=== PATIENT | female | born 1985 | race Caucasian/White ===

== ENCOUNTER 2016-12-31 19:01 | Observation (INO) ==
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
[2016-12-31] MEDS ORDERED: Tdap (Boostrix) Vaccine 0.5 ML SYRINGE IM ONE (20:24)
[2016-12-31 20:59] LABS: Alanine Aminotransferase 20 Units/L (0-55); Albumin 3.4 g/dL (3.5-5.0); Albumin/Globulin Ratio 0.9 (1.1-2.2); Alkaline Phosphatase 98 Units/L (38-126); Aspartate Amino Transferase 24 Units/L (5-34); BUN/Creatinine Ratio 16 (6-26); Bilirubin,Direct 0.2 mg/dL (0.0-0.5); Bilirubin,Indirect 0.1 mg/dL (0.0-1.2); Bilirubin,Total 0.3 mg/dL (0.2-1.2); Blood Urea Nitrogen 11 mg/dL (7-20); Calcium 8.7 mg/dL (8.6-10.8); Carbon Dioxide 24 mEq/L (19-29); Chloride 108 mEq/L (98-109); Globulin 3.7 g/dL (2.4-3.5); Glucose 95 mg/dL (70-99); Osmolality,Calculated 289 (280-300); Potassium 3.5 mEq/L (3.5-4.5); Sodium 140 mEq/L (136-145); Total Protein 7.1 g/dL (6.0-8.3); eGFR For African Americans > 60 (> 60); eGFR For Non-African Americans > 60 (> 60)
[2016-12-31 21:00] LABS: Acetaminophen < 1.0 mcg/mL (10-30); Salicylate < 5.0 mg/dL (15-30)
[2016-12-31 21:13] LABS: Bilirubin,Urine Small (Negative); Blood,Urine Large (Negative); Color,Urine Yellow (Yellow); Glucose,Urine (UA) Normal (Normal); Ketones,Urine Negative (Negative); Leukocyte Esterase,Urine Negative (Negative); Nitrite,Urine Positive (Negative); Protein,Urine Trace mg/dL (Neg-Trace); Specific Gravity,Urine > 1.030 (1.010-1.025); Urobilinogen,Urine Normal (Normal)
[2016-12-31 21:15] LABS: Bacteria,Urine Many per hpf (None-Few); Hyaline Casts,Urine Few per lpf (None-Few); RBC,Urine 50-100 per hpf (0-3); Squamous Epithelial Cell,Urine Many per lpf (None-Few)
[2016-12-31 21:16] LABS: Clarity,Urine Hazy (Clear)
[2016-12-31 21:17] LABS: Basophils # 0.1 K/mcL (0.0-0.2); Basophils % 0.7 %; Eosinophils # 0.1 K/mcL (0.0-0.6); Eosinophils % 0.7 %; Hematocrit 41.3 % (35.3-44.9); Immature Granulocytes % 0.3 % (0-4); Immature Platelets 7.5 % (1.1-6.1); Lymphocytes # 2.8 K/mcL (0.6-4.6); Lymphocytes % 38.6 %; Mean Corpuscular HGB Conc 32.2 g/dL (31.6-35.5); Mean Corpuscular Hemoglobin 26.2 pg (28.0-33.3); Mean Platelet Volume 10.7 fL (9.4-12.4); Monocytes # 0.5 K/mcL (0.0-1.3); Monocytes % 6.2 %; Neutrophils # 3.9 K/mcL (1.6-8.9); Platelet Count 188 K/mcL (140-400); Red Blood Count 5.08 M/mcL (3.82-4.97); Red Cell Distribution Width 14.2 % (11.5-14.5); Segmented Neutrophils % 53.5 %
[2016-12-31 21:18] LABS: Hemoglobin 13.3 g/dL (11.5-15.4); Mean Corpuscular Volume 81.3 fL (83.0-100.0)
[2016-12-31 21:20] LABS: Triiodothyronine (T3) Free 3.66 pg/mL (1.71-3.71)
[2016-12-31 21:29] LABS: Amphetamine Screen,Urine Positive ng/mL (Cutoff=1000); Barbiturate Screen,Urine Negative ng/mL (Cutoff=200); Benzodiazepines Screen,Urine Negative ng/mL (Cutoff=200); Cannabinoid Screen,Urine Positive ng/mL (Cutoff = 50); Cocaine Screen,Urine Negative ng/mL (Cutoff= 300); Opiate Screen,Urine Negative ng/mL (Cutoff=300); Phencyclidine Screen,Urine Negative ng/mL (Cutoff=25)
[2016-12-31] MEDS ORDERED: 0.9 % Sodium Chloride 1,000 ML IVC ONE (23:12)
[2016-12-31] MEDS ORDERED: *HR* LORazepam 2 MG/ML VIAL IVP ONE (23:20)
[2016-12-31] MEDS ORDERED: *HR* LORazepam 1 MG TABLET PO ONE (23:59)
[2017-01-01 00:23] LABS: INR 1.2; Prothrombin Time 12.7 Seconds (9.4-12.1)
[2017-01-01] MEDS ORDERED: Ketorolac 30 MG/ML VIAL IVP PRN (01:40)
[2017-01-01] MEDS ORDERED: Acetaminophen 325 MG TABLET PO PRN (01:40)
[2017-01-01] MEDS ORDERED: Pantoprazole 40 MG VIAL IVP STA (01:40)
[2017-01-01] MEDS ORDERED: Naloxone 0.4 MG/ML INJ IVP PRN (01:40)
[2017-01-01] MEDS ORDERED: *HR* Promethazine 25 MG/ML VIAL IVP PRN (01:40)
--- NOTE | 2017-01-01 01:52 | Internal Med History&Physical ---
Date of Encounter: 01/01/17 Time of Encounter: 01:30 Assessment and Plan (1) Acute narcotic intoxication with delirium Status: Acute . (2) Toxic metabolic encephalopathy Status: Acute . (3) Polysubstance overdose Status: Acute . Qualifiers: Encounter type: initial encounter Injury intent: undetermined intent Qualified Code(s): T50.904A - Poisoning by unspecified drugs, medicaments and biological substances, undetermined, initial encounter (4) Graves disease Status: Chronic . Internal Medicine - H&P: HPI Chief complaint: Confusion Admitted From: Emergency Dept Plans for Post Hospital Care: Home History of present illness: Ms. Schafer is a 31 year old female with significant history reported for Graves ' disease (not currently on thyroid suppressive medication), PTSD/Gen anxiety, H/O polysubst abuse/opiates, nonsmoker, etc.. Admitted to [facility] via the emergency department when she presents accompanied by a friend with concern over possible involuntary drug intoxication. Findings in the ED: Temperature 98.1 pulse 98-100 respiration 16-18 BP 114-130/70-81. O2 saturation is 100% room air. WBC 7.3. Hemoglobin 13.3. Platelets 188,000. Differential normal. Comprehensive metabolic panel is normal. BUN 11 creatinine 0.7. Hepatic function normal. Serum negative. Salicylates less than 5 acetaminophen less than 1. C-reactive protein 3. TSH 0.000. Free-T4 1.52. Free -T3 3.66. Urinalysis hazy appearance. Trace protein. Large blood. Positive nitrite. Small bilirubin. 100 RBC. 15 WBC. Many squamous epithelial cells. Many bacteria. Many hyalin casts. Urine drug screen positive amphetamines and marijuana. Preliminary impressions suggest polysubstance abuse and intoxication. Likelihood of agents not measured her standard screen on board in this patient. Histrionic and circumstantial. History of events cannot be validated by body of information at hand. The patient was visited and interviewed and examined. (Patient was not found to be a reliable witness of current circumstances and events.) Cumulative laboratory and radiographic data base will be considered and discussed. Pertinent ancillary medical records including ECW and PCI documentation when available was reviewed and considered. Given the patient's presenting concerns, past medical history, clinical findings and symptoms, she is admitted at this time will undergo further evaluation and disposition. Orders were written as per the computerized physician billet recorder system.......................................................................... .................... Consultative opinions will be sought as clinical circumstances justify. business services analyst/case management consultative input/ guide discharge planning goals. Pain management needs will be addressed. Laboratory+radiographic data base will be updated as appropriate. Studies include: Culture urine blood, Shcg, UDS, UA, pt/inr, aptt, prolactin, cpk , cardiac injury panel, BNP, metabolic and hematologic panel, magnesium, phosphorus, ionized calcium, thyroid profile, lipid profile, A1c, C-peptide, CRP , sedimentation rate, blood gas, lactic acid, ethanol, serologies, etc. Precautions: Aspiration, fall, seizure, delirium protocol/surveillance initiated. Narcotic and alcohol detoxification-withdrawal protocols/surveillance initiated. CIWA/SAS guidelines and therapeutic interventions initiated. Telemetry with continuous hemodynamic monitoring and pulse oximetry initiated. Orthostatic vital signs. Empiric antibiotic coverage: Intravenous Rocephin pending culture data. Special studies: CT head, chest x-ray, telemetry, EKG. Pulmonary toilet: Incentive spirometry. PRN: aerosol bronchodilator, mucolytic, antitussive. Supplemental oxygen. Corticosteroid therapy PRN. CPAP/BiPAP supplemental oxygen delivery PRN. Aerosol Mucomyst therapy PRN. Fluid and electrolyte repletion efforts will proceed. Careful attention to fluid balance and renal recovery will be emphasized. Avoidance of nephrotoxic exposure and adverse drug drug interaction in the setting of impaired renal function will be monitored closely. Acute coronary syndrome protocol/surveillance initiated. DVT and PUD prophylaxis initiated: PPI therapy, intermittent pneumatic cuffs/ TEDs. Subcutaneous heparin. Early ambulation will be encouraged. Immunization updates recommended. Influenza and pneumococcal vaccinations as part of ongoing preventative healthcare recommendations strongly recommended. Smoking cessation counseling briefly addressed. Patient is a nonsmoker. Advanced care directive discussion briefly addressed. Patient does not declare any healthcare restrictions at this time. Cardiovascular risk appraisal and cardiovascular risk reduction efforts will be emphasized. Physical=occupational therapy may be counseled to evaluate patient's functional capacity and progress mobility if her circumstances justify. Nutrition/dietary education and supplementary diet options counseling may be considered as circumstances justify. Outpatient medication schedules will be reviewed, confirmed and facilitated as appropriate. Reconciliation of home treatments including adjustments, substitutions and reintroduction into the treatment regimen will address necessary maintenance therapies for chronic pre-existing medical conditions. Plan of care has been reviewed and discussed in detail with the patient. Questions addressed. Hospital course dictated by clinical findings, treatment response and potential consultative interventions. Patient is at risk for further acute clinical decline due to her presenting chief complaints and comorbid conditions. Condition is serious. Prognosis is guarded. CODE STATUS is full. Past Med Surg Social Fam HX - Past Medical History Source: old records reviewed Medical history: thyroid disease (Graves' disease. Polysubstance abuse ( marijuana, amphetamines, opiates, etc.)), other Psychiatric history: anxiety, PTSD, other - Past Surgical History Surgical History: non-contributory, other - Social History Smoking Status: Never smoker Smokeless Tobacco Status: No Alcohol use: none, unknown Drug use: opiates, marijuana, methamphetamine, prescription drug abuse, other Occupational status: unemployed Current living situation: Home - Independent, Home Activity Level: Independent ambulation, Mostly sedentary Recent Out of Country Travel Within the Last 8 Weeks: No Exposure or Possible Exposure to Illness During Travel: No Internal Medicine - H&P: Meds Nitrofurantoin Monohyd/M-Cryst [Macrobid 100 mg Capsule] 100 mg PO BID #10 capsule 01/01/17 [Rx] Allergies latex Allergy (Verified 12/31/16 19:15) Hives Sulfa (Sulfonamide Antibiotics) Allergy (Verified 12/31/16 19:15) Hives sulfamethoxazole [From Bactrim] Allergy (Verified 01/01/17 14:00) Hives trimethoprim [From Bactrim] Allergy (Verified 01/01/17 14:00) Hives ROS unobtainable: due to mental status All Systems PM: A 10-system review of systems was performed and is negative for pertinent findings except as documented above in the HPI. - Constitutional Constitutional: as per HPI - EENT Eyes: as per HPI Ears: as per HPI Nose, mouth and throat: as per HPI - Cardiovascular Cardiovascular ROS IM: as per HPI - Respiratory Respiratory: as per HPI - Gastrointestinal Gastrointestinal: as per HPI - Genitourinary Genitourinary: as per HPI Menstruation: as per HPI - Musculoskeletal Musculoskeletal ROS IM: as per HPI - Integumentary Integumentary IM: as per HPI - Neurological Neurological ROS: as per HPI - Psychiatric Psychiatric: as per HPI - Endocrine Endocrine IM: as per HPI - Hematologic/Lymphatic Hematologic/Lymphatic: as per HPI - Allergic/Immunologic Allergic/Immunologic: as per HPI - Constitutional Vitals: Temp Pulse Resp BP Pulse Ox 97.8 F 77 16 99/65 100 01/01/17 01:30 01/01/17 01:30 01/01/17 01:30 01/01/17 01:30 01/01/17 01:30 Vital Signs Temp Pulse Resp BP Pulse Ox 01/01/17 01:30 97.8 F 77 16 99/65 100 01/01/17 00:53 18 118/89 01/01/17 00:19 82 109/74 99 12/31/16 23:17 90 16 107/80 98 12/31/16 22:20 89 18 114/58 98 12/31/16 21:46 98 18 130/81 100 12/31/16 20:45 84 18 125/68 96 12/31/16 19:25 101 18 126/78 99 12/31/16 19:09 98.1 F 105 16 114/72 99 Intake and Output 12/31/16 12/31/16 01/01/17 15:59 23:59 07:59 Intake Total 1100 / 1100 Balance 1100 / 1100 Intake: IV Fluids 1100 / 1100 0.9 % Sodium Chloride 1, 1000 / 1000 000 ML @ 3750 mls/hr IVC .Q16M ONE Rx#:[id number] Rocephin 1,000 MG In 100 / 100 Dextrose 5% (Minibag+) 100 ML 100 ML @ 200 mls/ hr IVPB ONCE ONE Rx#: [id number] Other: Weight 58.967 kg General appearance: Present: disheveled, A&O X 2, mild distress, answers questions appropriately Exam: The inattentive and intoxicated. Arousable to stimuli and responsive. Patient consult to sleep easily. Anxious and concerned apparent recurrent circumstances. - Head Head exam: Present: atraumatic, normocephalic - Eye Eye exam: Present: EOMI, PERRL, conjuntiva pink, sclera anicteric Pupils: Present: normal accommodation, PERRL - ENT ENT exam: Present: mucous membranes moist, normal oropharynx - Neck Neck exam general surgery: Present: supple, trachea midline. Absent: lymphadenopathy, nuchal rigidity - Respiratory Respiratory exam: Present: decreased breath sounds, CTAB. Absent: accessory muscle use, rales, rhonchi, wheezes - Cardiovascular Cardiovascular exam: Present: distant heart sounds, RRR, +S1, +S2. Absent: diastolic murmur, gallop, rubs, systolic murmur - GI/Abdominal GI/Abdominal exam: Present: normal bowel sounds, soft, no peritoneal signs. Absent: distended, tenderness - Extremities Exam Extremities exam: Present: full ROM, normal capillary refill, warm, radial pulses palpable and symetrical. Absent: calf tenderness, cyanotic, pedal edema Additional comments: Areas of bruising noted at left leg and thigh bilaterally. Minor erythematous non-petechial or purpuric lesions. And arm and below the cervical spine. No necrotic skin changes apparent or blistering. Excoriations and some slight scabbing noted. - Neurological Exam Neurological exam: Present: alert, altered, CN II-XII intact, oriented X3, no focal deficits, strengths equal and symetr throughout. Absent: pronater drift, facial droop, speech deficit - Expanded Neurological Exam Neurological exam expanded: Present: inattentive, protecting the airway. Absent : ataxia, expressive aphasia, receptive aphasia, tremor Patient oriented to: Present: person, place. Absent: time Speech: Present: garbled Coma Scale Eye Opening: To Voice Coma Scale Motor Response: Localizes to Pain Coma Scale Verbal Response: Confused Coma Scale Total: 12 - Psychiatric Psychiatric exam: Present: anxious, normal affect - Skin Skin exam: Present: abrasion, dry, excoriation, intact, warm Internal Med - H&P Results - Labs CBC & Chem 7: 12/31/16 21:10 01/01/17 04:11 Labs: Short CBC 12/31/16 Range/Units 21:10 WBC 7.3 (4.3-11.1) K/mcL Hgb 13.3 (11.5-15.4) g/dL Hct 41.3 (35.3-44.9) % Plt Count 188 (140-400) K/mcL Neutrophils # 3.9 (1.6-8.9) K/mcL BMP 04/28/17 Range/Units 20:34 Sodium 140 (136-145) mEq/L Potassium 3.5 (3.5-4.5) mEq/L Chloride 108 (98-109) mEq/L Carbon Dioxide 24 (19-29) mEq/L BUN 11 (7-20) mg/dL Creatinine 0.70 (0.57-1.11) mg/dL Glucose 95 (70-99) mg/dL Calcium 8.7 (8.6-10.8) mg/dL Cardiac Enzymes 01/01/17 Range/Units 00:08 Troponin I 0.01 (0-0.03) ng/mL Liver Function 12/31/16 Range/Units 20:34 Total Bilirubin 0.3 (0.2-1.2) mg/dL Direct Bilirubin 0.2 (0.0-0.5) mg/dL AST 24 (5-34) Units/L ALT 20 (0-55) Units/L Alkaline Phosphatase 98 (38-126) Units/L Albumin 3.4 L (3.5-5.0) g/dL Urine 12/31/16 Range/Units 20:58 Urine Color Yellow (Yellow) Urine Clarity Hazy A (Clear) Urine pH 6.0 (5.0-8.0) pH Units Ur Specific Hartsel > 1.030 H (1.010-1.025) Urine Protein Trace (Neg-Trace) mg/dL Urine Glucose (UA) Normal (Normal) mg/dL Abnormal lab results RBC 5.08 M/mcL (3.82-4.97) H 12/31/16 21:10 MCV 81.3 fL (83.0-100.0) L 12/31/16 21:10 MCH 26.2 pg (28.0-33.3) L 12/31/16 21:10 Immature Plt Fraction 7.5 % (1.1-6.1) H 12/31/16 21:10 PT 12.7 Seconds (9.4-12.1) H 01/01/17 00:08 APTT 42.1 Seconds (26.0-36.0) H 12/31/16 20:34 Albumin 3.4 g/dL (3.5-5.0) L 12/31/16 20:34 Globulin 3.7 g/dL (2.4-3.5) H 12/31/16 20:34 Albumin/Globulin Ratio 0.9 (1.1-2.2) L 12/31/16 20:34 TSH 0.000 mcIU/mL (0.350-4.840) L 12/31/16 20:34 Free T4 1.52 ng/dl (0.70-1.48) H 12/31/16 20:34 Urine Clarity Hazy (Clear) A 12/31/16 20:58 Ur Specific Hart[place] > 1.030 (1.010-1.025) H 12/31/16 20:58 Urine Blood Large (Negative) H 12/31/16 20:58 Urine Nitrite Positive (Negative) A 12/31/16 20:58 Urine Bilirubin Small (Negative) H 12/31/16 20:58 Urine Microscopic RBC 50-100 per hpf (0-3) H 12/31/16 20:58 Urine Microscopic WBC 5-15 per hpf (0-3) H 12/31/16 20:58 Ur Squamous Epith Cells Many per lpf (None-Few) H 12/31/16 20:58 Urine Bacteria Many per hpf (None-Few) H 12/31/16 20:58 Ur Culture Indicated? YES (NO) A 12/31/16 20:58 Salicylates < 5.0 mg/dL (15-30) L 12/31/16 20:34 Acetaminophen < 1.0 mcg/mL (10-30) L 12/31/16 20:34 Ur Amphetamines Screen Positive ng/mL (Arzqtt=5486) H 12/31/16 21:14 U Marijuana (THC) Screen Positive ng/mL (Cutoff = 50) H 12/31/16 21:14 Laboratory Results WBC 7.3 K/mcL (4.3-11.1) 12/31/16 21:10 RBC 5.08 M/mcL (3.82-4.97) H 12/31/16 21:10 Hgb 13.3 g/dL (11.5-15.4) 12/31/16 21:10 Hct 41.3 % (35.3-44.9) 12/31/16 21:10 MCV 81.3 fL (83.0-100.0) L 12/31/16 21:10 MCH 26.2 pg (28.0-33.3) L 12/31/16 21:10 MCHC 32.2 g/dL (31.6-35.5) 12/31/16 21:10 RDW 14.2 % (11.5-14.5) 12/31/16 21:10 Plt Count 188 K/mcL (140-400) 12/31/16 21:10 MPV 10.7 fL (9.4-12.4) 12/31/16 21:10 Immature Gran % 0.3 % (0-4) 12/31/16 21:10 Seg Neutrophils % 53.5 % 12/31/16 21:10 Lymphocytes % 38.6 % 12/31/16 21:10 Monocytes % 6.2 % 12/31/16 21:10 Eosinophils % 0.7 % 12/31/16 21:10 Basophils % 0.7 % 12/31/16 21:10 Neutrophils # 3.9 K/mcL (1.6-8.9) 12/31/16 21:10 Lymphocytes # 2.8 K/mcL (0.6-4.6) 12/31/16 21:10 Monocytes # 0.5 K/mcL (0.0-1.3) 12/31/16 21:10 Eosinophils # 0.1 K/mcL (0.0-0.6) 12/31/16 21:10 Basophils # 0.1 K/mcL (0.0-0.2) 12/31/16 21:10 Immature Plt Fraction 7.5 % (1.1-6.1) H 12/31/16 21:10 PT 12.7 Seconds (9.4-12.1) H 01/01/17 00:08 INR 1.2 01/01/17 00:08 APTT 42.1 Seconds (26.0-36.0) H 12/31/16 20:34 Sodium 140 mEq/L (136-145) 12/31/16 20:34 Potassium 3.5 mEq/L (3.5-4.5) 12/31/16 20:34 Chloride 108 mEq/L (98-109) 12/31/16 20:34 Carbon Dioxide 24 mEq/L (19-29) 12/31/16 20:34 BUN 11 mg/dL (7-20) 12/31/16 20:34 Creatinine 0.70 mg/dL (0.57-1.11) 12/31/16 20:34 Est GFR ( Amer) > 60 (> 60) 12/31/16 20:34 Est GFR (Non-Af Amer) > 60 (> 60) 12/31/16 20:34 BUN/Creatinine Ratio 16 (6-26) 12/31/16 20:34 Glucose 95 mg/dL (70-99) 12/31/16 20:34 Calculated Osmolality 289 (280-300) 12/31/16 20:34 Lactic Acid 1.2 mmol/L (0.5-2.2) 01/01/17 00:08 Calcium 8.7 mg/dL (8.6-10.8) 12/31/16 20:34 Total Bilirubin 0.3 mg/dL (0.2-1.2) 12/31/16 20:34 Direct Bilirubin 0.2 mg/dL (0.0-0.5) 12/31/16 20:34 Indirect Bilirubin 0.1 mg/dL (0.0-1.2) 12/31/16 20:34 AST 24 Units/L (5-34) 12/31/16 20:34 ALT 20 Units/L (0-55) 12/31/16 20:34 Alkaline Phosphatase 98 Units/L (38-126) 12/31/16 20:34 Troponin I 0.01 ng/mL (0-0.03) 01/01/17 00:08 C-Reactive Protein 3 mg/L (Less than 5) 12/31/16 20:34 Serum Total Protein 7.1 g/dL (6.0-8.3) 12/31/16 20:34 Albumin 3.4 g/dL (3.5-5.0) L 12/31/16 20:34 Globulin 3.7 g/dL (2.4-3.5) H 12/31/16 20:34 Albumin/Globulin Ratio 0.9 (1.1-2.2) L 12/31/16 20:34 TSH 0.000 mcIU/mL (0.350-4.840) L 12/31/16 20:34 Free T4 1.52 ng/dl (0.70-1.48) H 12/31/16 20:34 Free T3 3.66 pg/mL (1.71-3.71) 12/31/16 20:34 Serum , Qual Negative (Negative) 12/31/16 20:34 Urine Color Yellow (Yellow) 12/31/16 20:58 Urine Clarity Hazy (Clear) A 12/31/16 20:58 Urine pH 6.0 pH Units (5.0-8.0) 12/31/16 20:58 Ur Specific [place] > 1.030 (1.010-1.025) H 12/31/16 20:58 Urine Protein Trace mg/dL (Neg-Trace) 12/31/16 20:58 Urine Glucose (UA) Normal mg/dL (Normal) 12/31/16 20:58 Urine Ketones Negative mg/dL (Negative) 12/31/16 20:58 Urine Blood Large (Negative) H 12/31/16 20:58 Urine Nitrite Positive (Negative) A 12/31/16 20:58 Urine Bilirubin Small (Negative) H 12/31/16 20:58 Urine Urobilinogen Normal mg/dL (Normal) 12/31/16 20:58 Ur Leukocyte Esterase Negative (Negative) 12/31/16 20:58 Urine Microscopic RBC 50-100 per hpf (0-3) H 12/31/16 20:58 Urine Microscopic WBC 5-15 per hpf (0-3) H 12/31/16 20:58 Ur Squamous Epith Cells Many per lpf (None-Few) H 12/31/16 20:58 Urine Bacteria Many per hpf (None-Few) H 12/31/16 20:58 Hyaline Casts Few per lpf (None-Few) 12/31/16 20:58 Ur Culture Indicated? YES (NO) A 12/31/16 20:58 Salicylates < 5.0 mg/dL (15-30) L 12/31/16 20:34 Urine Opiates Screen Negative ng/mL (Lhgwcq=147) 12/31/16 21:14 Acetaminophen < 1.0 mcg/mL (10-30) L 12/31/16 20:34 Ur Barbiturates Screen Negative ng/mL (Hzscqx=339) 12/31/16 21:14 Ur Phencyclidine Scrn Negative ng/mL (Cutoff=25) 12/31/16 21:14 Ur Amphetamines Screen Positive ng/mL (Dpywxr=3559) H 12/31/16 21:14 U Benzodiazepines Scrn Negative ng/mL (Ovbqqx=805) 12/31/16 21:14 Urine Cocaine Screen Negative ng/mL (Cutoff= 300) 12/31/16 21:14 U Marijuana (THC) Screen Positive ng/mL (Cutoff = 50) H 12/31/16 21:[address] 12/31/16 23:20 IMPRESSION: No acute intracranial abnormality. D/ / Marjorie Victoria MD / Marjorie Victoria MD Interpreting Provider: Marjorie Victoria MD Chest X-Ray 01/01/17 00:14 IMPRESSION: No acute process. D/ / Marjorie Victoria MD / Marjorie Victoria MD Interpreting Provider: Marjorie Victoria MD
[2017-01-01] MEDS ORDERED: Promethazine 12.5 MG in 0.9 % Sodium Chloride 50 ML IVPB PRN (01:56)
[2017-01-01] MEDS: 0.9 % Sodium Chloride 1,000 ML IVC SCH ×2 (02:51→09:22)
[2017-01-01 04:19] LABS: VBG HCO3 24.8 mEq/L (21-27); VBG PH 7.4 pH Units (7.32-7.42)
[2017-01-01 04:24] LABS: INR 1.1; Prothrombin Time 12.4 Seconds (9.4-12.1)
[2017-01-01 04:31] LABS: BUN/Creatinine Ratio 14 (6-26); Blood Urea Nitrogen 9 mg/dL (7-20); Calcium 7.8 mg/dL (8.6-10.8); Carbon Dioxide 25 mEq/L (19-29); Chloride 111 mEq/L (98-109); Glucose 95 mg/dL (70-99); Magnesium 1.9 mg/dL (1.6-2.6); Osmolality,Calculated 288 (280-300); Phosphorous 3.5 mg/dL (2.3-4.7); Potassium 3.4 mEq/L (3.5-4.5); Sodium 140 mEq/L (136-145); eGFR For African Americans > 60 (> 60); eGFR For Non-African Americans > 60 (> 60)
[2017-01-01 07:10] VITALS: BP 122/82
[2017-01-01] MEDS ORDERED: Famotidine 20 MG TABLET PO SCH (09:00)
[2017-01-01] MEDS ORDERED: HydrOXYzine 100 MG/2 ML VIAL IM ONE (10:01)
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
--- NOTE | 2017-01-02 17:46 | Electrocardiograph Report ---
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
[2017-01-03 15:10] LABS: Amphetamines NEGATIVE ng/mL (Cutoff 30); Barbiturates NEGATIVE ng/mL (Cutoff 75); Benzodiazepines NEGATIVE ng/mL (Cutoff 75); Cocaine NEGATIVE ng/mL (Cutoff 30); Methadone NEGATIVE ng/mL (Cutoff 40); Methamphetamines NEGATIVE ng/mL (Cutoff 30); Opiates NEGATIVE ng/mL (Cutoff 30); Phencyclidine NEGATIVE ng/mL (Cutoff 15)
== END 2017-01-01 16:00 | disposition home or self-care (01) ==
LOC: EMEROO 19:01 → 3BNU 19:01
PROVIDERS: ADMIT Internal Medicine; ATTEND Registered Nurse